=== PATIENT | male | born 1935 | race Caucasian/White ===

== ENCOUNTER 2016-05-07 18:09 | Emergency (ER) | payer MEDICARE, OTHER ==
[~2016-05-07] VITALS: Ht 177.8 cm; Wt 90.7 kg
[~2016-05-07 18:09] MED LIST: ADVAIR DIS14 PUFF/IN INH; ASPIRIN81 MG PO; LIPITOR80 MG PO; MUCUS RELIEF600 MG PO; OS-CAL 500+D31 EAC1 PO; PEPCID20 MG PO; PLAQUENIL200 MG PO; PROVENTIL HFA6.7 GM INH; SPIRIVA RESPIMAT4 GM INH; VENTOLIN HFA8 GM INH; VITAMIN A PO
== END 2016-05-07 19:30 | disposition short-term general hospital (02) ==
LOC: ER 18:09
DX: S61.311A Laceration without foreign body of left index finger with damage to nail, initial encounter (principal); Z23 Encounter for immunization; W22.8XXA Striking against or struck by other objects, initial encounter

== ENCOUNTER → 2016-07-10 | Outpatient (CLI) | payer MEDICARE, OTHER | END | disposition short-term general hospital (02) | LOC: CLCARD 09:08 | DX: I25.10 Atherosclerotic heart disease of native coronary artery without angina pectoris (principal); I45.9 Conduction disorder, unspecified; I49.9 Cardiac arrhythmia, unspecified; J44.9 Chronic obstructive pulmonary disease, unspecified; I77.9 Disorder of arteries and arterioles, unspecified; I10 Essential (primary) hypertension; E78.5 Hyperlipidemia, unspecified; Z95.1 Presence of aortocoronary bypass graft ==

== ENCOUNTER → 2016-08-11 | Outpatient (CLI) | payer MEDICARE, OTHER | END | disposition short-term general hospital (02) | LOC: CLORTH 07-29 11:39 → CLPULM 11:46 | DX: J44.9 Chronic obstructive pulmonary disease, unspecified (principal); G47.33 Obstructive sleep apnea (adult) (pediatric); E66.9 Obesity, unspecified; I25.10 Atherosclerotic heart disease of native coronary artery without angina pectoris; E78.5 Hyperlipidemia, unspecified; J30.9 Allergic rhinitis, unspecified; K21.9 Gastro-esophageal reflux disease without esophagitis; Z87.898 Personal history of other specified conditions; Z95.1 Presence of aortocoronary bypass graft; Z87.891 Personal history of nicotine dependence; Z79.899 Other long term (current) drug therapy ==